=== PATIENT | female | born 1985 | race Caucasian/White ===

== ENCOUNTER → 2021-08-09 17:40 | Outpatient (CLI) | payer OTHER, SELFPAY ==
--- NOTE | ~2021-08-09 | MR_ITS ---
EXAMINATION: MR knee LT wo con DATE: 08/09/2021 19:06 INDICATION: Acute left knee pain. TECHNIQUE: Magnetic resonance imaging (MRI) of the left knee was performed without intravenous contra st. Sequences included axial PD-weighted FS FSE, coronal PD-weighted FSE and PD-weighted FS FSE, sagi ttal PD-weighted FSE, and sagittal T2-weighted FS FSE. COMPARISON: None. FINDINGS: Medial compartment: Medial meniscus is normal. Medial compartment cartilage is normal. Lateral compartment: Lateral meniscus is normal. Lateral compartment cartilage is normal. Patellofemoral compartment: There is shallow partial-thickness cartilage loss of patellar medial and lateral facets. There is madai p cartilage fissuring of patellar median ridge with mild subchondral edema-like marrow signal intensi ty. There is focal deep partial thickness cartilage loss of medial trochlea with mild subchondral chu ma-like marrow signal intensity. Ligaments and tendons: The anterior and posterior cruciate ligaments are normal. Medial collateral ligament and lateral vinny ateral ligament complex are normal. There is mild patellar tendinopathy. Fluid: There is a small knee joint effusion. There is trace fluid in a Howard's cyst. IMPRESSION: 1. Moderate chondrosis of patellofemoral compartment. 2. Small knee joint effusion. Reviewed, dictated and finalized at location A.
== END ==
PROVIDERS: PCP Nurse Practitioner Family; Visit Provider Nurse Practitioner Family
DX: M25.562 Pain in left knee (principal); M22.2X2 Patellofemoral disorders, left knee; M25.462 Effusion, left knee
CPT/HCPCS: 73721

== ENCOUNTER 2022-01-24 09:50 | Outpatient (CLI) | payer OTHER, SELFPAY ==
--- NOTE | 2022-01-24 11:00 | NEURO_ITS ---
Impression: # Complains of left lower extremity discomfort. # Normal nerve conduction study. # Normal needle/EMG exam including quadriceps. # No Tarsal Tunnel Syndrome. # Clinical correlation recommended. Nerve Conduction Studies Anti Sensory Summary Table Stim Site NR Peak (ms) P-T Amp (?V) Site1 Site2 Delta-P (ms) Dist (cm) Martinez (m/s) Left Sup Fibular Anti Sensory (Ant Lat Mall) 14 cm 3.8 20.9 14 cm Ant Lat Mall 3.8 16.0 42 Left Sural Anti Sensory (Lat Mall) Calf 4.3 16.3 Calf Lat Mall 4.3 17.0 40 Motor Summary Table Stim Site NR Onset (ms) O-P Amp (mV) Site1 Site2 Delta-0 (ms) Dist (cm) Martinez (m/s) Left Lateral Plantar Motor (ADM) Med Mall 4.0 1.5 Left Peroneal Motor (Vastus Med) Ankle 3.5 2.2 Popit Ankle 7.1 36.0 51 Popit 10.6 1.5 Left Tibial Motor (Abd Cleaning Brev) Ankle 4.4 11.3 Knee Ankle 7.3 38.0 52 Knee 11.7 9.3 F Wave Studies NR F-Lat (ms) L-R F-Lat (ms) Left Peroneal (Mrkrs) (EDB) 42.19 Left Tibial (Mrkrs) (Abd Hallucis) 43.56 EMG Side Muscle Nerve Root Ins Act Fibs Amp Dur Recrt Comment Left AntTibialis Dp Br Fibular L4-5 Nml Nml Nml Nml Nml Left Gastroc Tibial S1-2 Nml Nml Nml Nml Nml Left Fibularis Long Sup Br Fibular L5-S1 Nml Nml Nml Nml Nml Left Flex Dig Long Tibial L5-S2 Nml Nml Nml Nml Nml Left Ext Dig Brev Dp Br Fibular L5, S1 Nml Nml Nml Nml Nml Left QuadratusFem QuadFemoris L4-5, S1 Nml Nml Nml Nml Nml MTDD
== END 2022-01-24 09:51 | disposition home or self-care (01) ==
PROVIDERS: PCP Nurse Practitioner Family; Visit Provider Internal Medicine
DX: M79.2 Neuralgia and neuritis, unspecified (principal)
CPT/HCPCS: 95886; 95909